=== PATIENT | male | born 1960 | race African-American/Black ===

== ENCOUNTER 2018-11-03 13:17 | Emergency (ER) | payer OTHER, SELFPAY ==
[~2018-11-03 13:17] MED LIST: Iopamidol 370 76% 100 ML VIAL ONE
[2018-11-03 14:21] LABS: #Basophils 0.1 thou/uL (0.0-0.2); #Lymphocytes 1.6 thou/uL (1.20-3.40); #Monocytes 0.6 thou/uL (0.11-0.59); #Neutrophils 6.7 thou/uL (1.40-6.50); %Basophils 0.8 % (0.0-1.0); %Eosinophils 0.5 % (0.0-10.0); %Lymphocytes 17.5 % (21.0-51.0); %Monocytes 6.2 % (0.0-10.0); Hemoglobin 15.9 g/dL (14.0-18.0); Mean Corpuscular HGB CONC 33.4 g/dL (32.0-36.0); Mean Corpuscular Hemoglobin 32.9 pg (27.0-31.0); Mean Corpuscular Volume 98.4 fL (78.0-98.0); Mean Platelet Volume 7.7 fL (7.4-10.4); Platelet Count 237 thou/uL (130-400); RBC Distribution Width 11.3 % (11.5-14.5); Red Blood Cell (RBC) Count 4.82 mill/uL (4.70-6.10); White Blood Cell (WBC) Count 8.9 thou/uL (4.8-10.8)
[2018-11-03 14:28] LABS: INR-International Normal Ratio 0.9; Prothrombin Time 12.6 SEC (12.0-14.7)
[2018-11-03 14:40] LABS: ALT (SGPT) 16 U/L (8-55); AST (SGOT) 16 U/L (5-34); Albumin 4.7 g/dL (3.5-5.0); Alkaline Phosphatase 110 U/L (40-150); Anion Gap 15 mmol/L (10-20); BUN (Urea Nitrogen) 13 mg/dL (8.4-25.7); Bilirubin, Total 0.2 mg/dL (0.2-1.2); Calc. Creatinine Clearance 0 mL/min (70-130); Calcium 9.7 mg/dL (7.8-10.44); Carbon Dioxide 24 mmol/L (22-29); Chloride 105 mmol/L (98-107); Estimated GFR-MDRD Greater than 90; Globulin 3.1 g/dL (2.4-3.5); Glucose 247 mg/dL (70-105); Potassium 4.4 mmol/L (3.5-5.1); Protein, Total 7.8 g/dL (6.0-8.3); Sodium 140 mmol/L (136-145)
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
[2018-11-03] MEDS ORDERED: Lidocaine 1% w/Epinephrine 1:100K 30 ML VIAL ONE (15:25)
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
[2018-11-03] MEDS ORDERED: traMADol HCl 50 MG TAB ONE (16:19)
[2018-11-03] MEDS ORDERED: Cephalexin 500 MG CAP ONE (16:20)
== END 2018-11-03 16:40 | disposition home or self-care (01) ==
LOC: MADERS 13:17
DX: S01.81XA Laceration without foreign body of other part of head, initial encounter (principal); E11.9 Type 2 diabetes mellitus without complications; E78.5 Hyperlipidemia, unspecified; I10 Essential (primary) hypertension; F17.210 Nicotine dependence, cigarettes, uncomplicated; Z79.84 Long term (current) use of oral hypoglycemic drugs; Z79.899 Other long term (current) drug therapy; V49.9XXA Car occupant (driver) (passenger) injured in unspecified traffic accident, initial encounter
CPT/HCPCS: 12013; 70450; 71045; 72125; 74177; 80053; 85025; 85610; J2001

== ENCOUNTER 2018-12-23 07:42 | Emergency (ER) | payer SELFPAY ==
[2018-12-23] MEDS ORDERED: Cyclobenzaprine 10 MG TAB ONE (08:24)
[2018-12-23] MEDS ORDERED: Ketorolac Tromethamine 60 MG/2 ML VIAL ONE (08:25)
== END 2018-12-23 08:46 | disposition home or self-care (01) ==
LOC: MADERS 07:42
DX: S39.82XA Other specified injuries of lower back, initial encounter (principal); M54.6 Pain in thoracic spine; Z71.6 Tobacco abuse counseling; E11.9 Type 2 diabetes mellitus without complications; E78.5 Hyperlipidemia, unspecified; I10 Essential (primary) hypertension; F17.220 Nicotine dependence, chewing tobacco, uncomplicated; Z79.899 Other long term (current) drug therapy; Z79.84 Long term (current) use of oral hypoglycemic drugs; X50.9XXA Other and unspecified overexertion or strenuous movements or postures, initial encounter
CPT/HCPCS: 96372; 99406; J1885

== ENCOUNTER 2019-04-29 20:21 | Emergency (ER) | payer SELFPAY ==
[2019-04-29] MEDS ORDERED: Morphine 10 MG/ML VIAL ONE (21:21)
--- NOTE | 2019-04-29 22:04 | CT ---
CT OF CHEST PERFORMED WITHOUT CONTRAST ENHANCEMENT: 04/29/19 HISTORY: Fell off of a horse. Chest pain. There is subsegmental atelectatic changes in the lung bases. There is no signs of pneumothorax. There are no rib fractures identified. No pleural effusions. The thoracic aorta is normal in caliber. No mediastinal hematoma. The visualized liver and spleen are unremarkable given limitations of a noncontrast study. IMPRESSION: No acute findings of the chest. POS: [facility]
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
== END 2019-04-29 22:40 | disposition home or self-care (01) ==
LOC: MADERS 20:21
DX: S43.401A Unspecified sprain of right shoulder joint, initial encounter (principal); S20.211A Contusion of right front wall of thorax, initial encounter; E11.9 Type 2 diabetes mellitus without complications; E78.5 Hyperlipidemia, unspecified; I10 Essential (primary) hypertension; F17.210 Nicotine dependence, cigarettes, uncomplicated; Z79.84 Long term (current) use of oral hypoglycemic drugs; Z79.899 Other long term (current) drug therapy; V80.010A Animal-rider injured by fall from or being thrown from horse in noncollision accident, initial encounter
CPT/HCPCS: 71250; 96372; J2270

== ENCOUNTER 2021-02-01 16:30 | Outpatient (CLI) | payer SELFPAY | END 2021-02-01 16:31 | disposition home or self-care (01) | LOC: MADRAD 16:30 | PROVIDERS: ATTEND Family Medicine | DX: M79.605 Pain in left leg (principal); S89.002A Unspecified physeal fracture of upper end of left tibia, initial encounter for closed fracture ==